=== PATIENT | male | born 1985 | race Caucasian/White ===

== ENCOUNTER 2025-02-06 06:24 | Day surgery (SDC) | payer BC ==
[2025-02-05 13:59] VITALS: BMI 21.6
[2025-02-06] MEDS ORDERED: Heparin 10,000 UNITS/ 10 ML VIAL ONE (06:52)
[2025-02-06] MEDS ORDERED: Isoproterenol 0.2 MG/1 ML AMP ONE (06:53)
[2025-02-06] MEDS ORDERED: Rocuronium Bromide 10 MG/ML (10ML VIAL) ONE (07:18)
[2025-02-06] MEDS ORDERED: Ondansetron PF 4 MG/2 ML Vial ONE (07:18)
[2025-02-06] MEDS ORDERED: PHENYLEPHRINE-NS 100 MCG/ML 10 ML SYRINGE ONE ×2 (07:19→10:22)
[2025-02-06] MEDS ORDERED: Lidocaine 1% (PF) 30 ML VIAL ONE (07:19)
[2025-02-06] MEDS ORDERED: PROPOFOL 200 MG/20 ML VIAL ONE (08:35)
[2025-02-06] MEDS ORDERED: SUGAMMADEX SODIUM 200 MG/2 ML VIAL ONE (09:17)
== END 2025-02-06 15:08 | disposition home or self-care (01) ==
LOC: SDC 06:24
PROVIDERS: ATTEND Internal Medicine Cardiovascular Disease
PROC: 4A0234Z Measurement of Cardiac Electrical Activity, Percutaneous Approach (ICD-10-PCS; principal; 2025-02-06)
DX: I47.10 Supraventricular tachycardia, unspecified (principal)
CPT/HCPCS: 71045; 86850; 86900; 86901; 93005; 93623; 93653; C1730; C1732; C1760; C1894; J1100; J1644; J2003; J2250; J2405; J2704; J3010; J3490